=== PATIENT | male | born 1945 | race Caucasian/White ===

== ENCOUNTER → 2019-10-31 09:50 | Outpatient (CLI) | payer MEDICARE, SELFPAY ==
--- NOTE | ~2019-10-31 | CT_ITS ---
EXAMINATION: CT abdomen pelvis wo con DATE: 10/31/2019 10:04 INDICATION: Renal mass. TECHNIQUE: Computed tomography (CT) of the abdomen and pelvis was performed without intravenous contr ast. Automated exposure control and iterative reconstruction technique were employed. Exam dose: 837 .86 mGy-cm total exam DLP. COMPARISON: 08/26/2019 retroperitoneal ultrasound examination FINDINGS: The lung bases are clear. There is coronary artery calcification. Normal heart size. No per icardial or pleural effusion. No hepatic, splenic or pancreatic or adrenal space-occupying mass lesion is evident. Minimal left adr enal calcification. The left kidney is absent. There is an ill-defined approximately 1.4 cm area of diminished attenuation posteriorly in the upper pole of the right kidney. Further evaluation of the kidney with IV contrast or preferably MRI examina tion is recommended. No urinary tract calculus or hydroureteronephrosis. The right seminal vesicle is unremarkable. Left seminal vesicle appears to be absent. The prostate gland is unremarkable. Mild di ffuse thickening of the urinary bladder wall. Small bilateral fat-containing inguinal hernias, greater on the right. There is extensive calcification of the abdominal aorta but no aneurysm. There is prominent calcifica tion of the iliac arteries and some femoral artery calcification is well. No intraperitoneal or retro peritoneal or pelvic mass lesion or adenopathy or ascites is detected. There are numerous diverticula of the left colon, particularly sigmoid colon; no CT evidence of diver ticulitis. Normal appendix. No bowel obstruction, pneumatosis or intraperitoneal free air. Small fat-containing umbilical hernia. 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 There is severe degenerative disc disease at L5-S1. There is moderate degenerative disease and mild retrolisthesis at L4-5. Diffuse idiopathic skeletal hyperostosis of the lower thoracic spine. IMPRESSION: Indeterminate ill-defined approximately 1.4 cm upper pole right renal mass; renal carcin rosalina cannot be excluded. 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 Reviewed, dictated and finalized at [facility]. [facility] [employer] IMPRESSION: Indeterminate ill-defined approximately 1.4 cm upper pole right re nal mass; renal carcinoma cannot be excluded. 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
== END ==
PROVIDERS: PCP Family Medicine Adolescent Medicine; Visit Provider Internal Medicine Nephrology
DX: N28.89 Other specified disorders of kidney and ureter (principal); K42.9 Umbilical hernia without obstruction or gangrene; K57.30 Diverticulosis of large intestine without perforation or abscess without bleeding; R91.8 Other nonspecific abnormal finding of lung field
CPT/HCPCS: 74176

== ENCOUNTER 2020-07-17 06:31 | Outpatient (CLI) | payer MEDICARE, SELFPAY ==
[2020-07-17 07:19] LABS: Estimated Glomerular Filt Rate 31
== END 2020-07-17 06:32 | disposition home or self-care (01) ==
PROVIDERS: PCP Family Medicine Adolescent Medicine; Visit Provider Urology
DX: N28.89 Other specified disorders of kidney and ureter (principal); Z53.9 Procedure and treatment not carried out, unspecified reason
CPT/HCPCS: 99199

== ENCOUNTER 2020-07-25 10:49 | Outpatient (CLI) | payer MEDICARE, SELFPAY ==
--- NOTE | ~2020-07-25 | CT_ITS ---
EXAMINATION: CT abdomen wo con DATE: 07/25/2020 11:49 INDICATION: Follow-up renal mass TECHNIQUE: Computed tomography (CT) of the abdomen no free air or free fluid. Was performed without i ntravenous contrast. The dose-length product was 604.67 mGy-cm. Automated exposure control and iterat allen reconstruction technique were employed. COMPARISON: None. FINDINGS: There is a subtle 1.2 cm mass at the upper pole of the right kidney without significant damien nge from prior examination. Lung bases are unremarkable. Heart size normal. There is atherosclerosis. The liver, spleen, pancreas , adrenal glands are unremarkable. Left kidney not identified, possibly congenitally or surgically ab sent. There are mesenteric lymph nodes with subtle central surrounding mesenteric stranding, consiste nt with panniculitis. The liver, spleen, pancreas, are unremarkable. Gallbladder is present. Nonobstructive bowel gas patte rn. IMPRESSION: 1. Stable 1.2 cm hypodense mass of the right kidney overlying for differences of technique. Recommend correlation with ultrasound or MRI as clinically indicated. Reviewed, dictated and finalized at [facility]. IMPRESSION: 1. Stable 1.2 cm hypodense mass of the right kidney overlying for differences o f technique. Recommend correlation with ultrasound or MRI as clinically indicat ed.
== END 2020-07-25 10:50 | disposition home or self-care (01) ==
PROVIDERS: PCP Family Medicine Adolescent Medicine; Visit Provider Urology
DX: N28.89 Other specified disorders of kidney and ureter (principal)
CPT/HCPCS: 74150

== ENCOUNTER 2021-06-18 14:40 | Outpatient (CLI) | payer MEDICARE, SELFPAY ==
--- NOTE | ~2021-06-18 | US_ITS ---
EXAMINATION: US retroperitoneal comp EXAM DATE: 06/18/2021 15:12 INDICATION: Renal mass. TECHNIQUE: Multiple grayscale and Doppler images of the kidneys were obtained (by a technologist who performed the scan) and subsequently reviewed. Comparison is made to prior examination from 08/26/2019 . Correlation made to CT abdomen 07/25/2020. FINDINGS: Right kidney: There is normal contour and echogenicity. It measures 12.3 x 6.8 x 7.1 centimeters. Th ere is a complex cystic mass in the midpole perihilar region measuring 2.5 cm in diameter, with multi ple septations. There is no hydronephrosis. Left kidney: Not identified Bladder unremarkable. 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 Consider MR abdomen without and with contrast. Reviewed, dictated and finalized at [facility].
== END 2021-06-18 14:41 | disposition home or self-care (01) ==
LOC: ANHIMG 14:42
PROVIDERS: PCP Family Medicine Adolescent Medicine; Visit Provider Urology
DX: N28.89 Other specified disorders of kidney and ureter (principal)
CPT/HCPCS: 76770

== ENCOUNTER 2021-09-27 09:26 | Outpatient (CLI) | payer MEDICARE, SELFPAY ==
--- NOTE | ~2021-09-27 | US_ITS ---
EXAMINATION: US retroperitoneal comp DATE: 09/27/2021 09:57 INDICATION: Renal mass TECHNIQUE: Multiple ultrasound grayscale images of the kidneys were obtained. COMPARISON: 06/18/2021 and 08/26/2019 FINDINGS: The left kidney is again not visualized and may be congenitally versus surgically absent. The right kidney measures 13.1 x 7.0 x 7.3 cm. Normal right renal cortical echogenicity with no hydronephrosis . No significant interval change in a 2.3 cm complex cystic mass with multiple thin internal septatio ns without a discrete nodular soft tissue component or evident internal vascular flow on color Dopple r. No stones identified. The bladder is normal. IMPRESSION: 1. 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 Recommend continued annual follow-up. 2. Chronically absent left kidney. Correlate with clinical history. Reviewed, dictated and finalized at [facility]. [facility] IMPRESSION: 1. No significant change in a 2.3 cm complex cystic mass with multiple thin sm ooth internal septations consistent with a Bosniak 2F lesion. Recommend continu ed annual follow-up. 2. Chronically absent left kidney. Correlate with clinical history.
== END 2021-09-27 09:27 | disposition home or self-care (01) ==
LOC: ANHIMG 09:32
PROVIDERS: PCP Family Medicine Adolescent Medicine; Visit Provider Urology
DX: N28.89 Other specified disorders of kidney and ureter (principal); Z90.5 Acquired absence of kidney
CPT/HCPCS: 76770

== ENCOUNTER 2022-03-30 07:18 | Outpatient (CLI) | payer MEDICARE, SELFPAY ==
--- NOTE | ~2022-03-30 | US_ITS ---
US retroperitoneal comp 03/30/2022 07:59 Procedure: Realtime transabdominal ultrasound of the kidneys and bladder. Indication: No renal mass Comparison: No prior studies for comparison. Findings: There are multiple right renal cysts, largest measuring 2.4 cm. Left kidney not visualized. No solid right renal masses or hydronephrosis. Bladder is unremarkable. Right kidney measures 13.1 c m in length. Impression: 1: Multiple right renal cysts measuring up to 2.4 cm. 2: Left kidney not identified which may be surgically or congenitally absent. Reviewed, dictated and finalized at location [facility]. Impression: 1: Multiple right renal cysts measuring up to 2.4 cm. 2: Left kidney not identified which may be surgically or congenitally absent.
== END 2022-03-30 07:19 | disposition home or self-care (01) ==
PROVIDERS: PCP Family Medicine Adolescent Medicine; Visit Provider Urology
DX: N28.81 Hypertrophy of kidney (principal); N28.1 Cyst of kidney, acquired
CPT/HCPCS: 76770